=== PATIENT | male | born 1950 | race Caucasian/White ===

== ENCOUNTER 2016-11-22 14:47 | Inpatient (IN) | payer OTHER ==
[~2016-11-22] VITALS: Ht 172.7 cm; Wt 56.3 kg
--- NOTE | ~2016-11-22 | CON ---
[place], [place] REPORT OF CONSULTATION NAME: KRYSTYNA PATRICK JR UNIT #: [id number] ROOM: 420 DOCTOR: JESUS BAILEYAVRIL BIRTHDATE: [birth year] DOS: GASTROENDOSCOPIC REPORT HISTORY OF PRESENT ILLNESS: A 66-year-old patient who has presented with multiple medical problems, chronic dysphagia, difficulty with solid food ingestion; however, severely short of breath, quite restricted inspiration, practically no air exchange. On nasal O2. I have been asked for assessment of the patient regarding EGD, possibilities of the etiology of dysphagia. PAST MEDICAL HISTORY: Centrilobular emphysema of advanced lung disease, respiratory insufficiency, hypoxemia, hypertension, depression, emaciation, hyperlipidemia, diabetes mellitus, BPH. PAST SURGICAL HISTORY: Associated with previous bronchoscopy, inguinal hernia repair. SOCIAL HISTORY: Smoker up to 7 years ago and alcohol consumer until 2 decades ago. ALLERGIES: To no known medications. MEDICATION: List was reviewed. FAMILY HISTORY: Noncontributory. REVIEW OF SYSTEMS: HEENT: Denies double vision, blurred vision. RESPIRATORY: Admits to shortness of breath, on nasal O2. DIGESTIVE SYSTEM: Severe dysphagia; however, this has been a chronic condition with him. CARDIOVASCULAR: Denies chest pain. NEUROMUSCULOSKELETAL: Weight loss of 25 pounds over the past couple of years. PHYSICAL EXAMINATION: GENERAL: Extremely emaciated patient. HEENT: Head normocephalic, nontraumatic. Mouth and buccal mucosa benign. No thrush. NECK: Supple, no thyromegaly, no cervical lymphadenopathy. CHEST: Symmetric anatomy, equal expansion. Dismal air exchange, particularly in inhalation. No wheezes; however. HEART: Normal sinus rhythm, no gallop, no murmur. ABDOMEN: Soft, globular. No hepato-organomegaly. Bowel sounds present. EXTREMITIES: No cyanosis, no pedal edema. NEUROLOGIC: Alert, oriented to time, place and person. IMPRESSION: Dysphagia, ruling out esophageal moniliasis, ruling out esophageal occult pathology, i.e. carcinoma with weight loss. Otherwise, other etiologies to be ruled out; advanced COPD; end-stage lung disease. Other adjunctive diagnoses as outlined in the paragraph of past medical and surgical history. [place], [place] REPORT OF CONSULTATION NAME: KRYSTYNA PATRICK JR UNIT #: [id number] ROOM: 420 DOCTOR: JESUS BAILEY,AVRIL BIRTHDATE: [birth year] PLAN AND DISCUSSION: We are going to hold Lovenox tomorrow morning and the next day, we are going to proceed with panendoscopy. Thank you very much indeed. AVRIL LEE MD CM:CONSTR:REPORT OF CONSULTATION 1456 01/17/17 0945 interface
--- NOTE | ~2016-11-22 | PR ---
[place], [place] PROGRESS NOTE NAME: KRYSTYNA PATRICK JR UNIT #: [id number] ROOM: 404 DOCTOR: SAMANTA REMY MD BIRTHDATE: [birth year] DOS: 11/25/2016 SUBJECTIVE: The patient is feeling better, does not have any new complaints, wanted his Vicodin increased. OBJECTIVE: VITAL SIGNS: Graphic trend shows a pressure 167/65, pulse of 94, respirations 22, temperature 97.6. LUNGS: Diminished breath sounds. No wheezes, rales, or rhonchi heard. HEART: Regular. Heart rate in the low 90s. ABDOMEN: Soft, nontender. EXTREMITIES: Without any edema. ASSESSMENT AND PLAN: 1. Acute respiratory failure from underlying end-stage chronic obstructive pulmonary disease, oxygen dependent, stable and improved. [place] [facility] 2. Generalized anxiety disorder with panic attacks now on Klonopin. He has already seen Dr. Hurtado and Dr. Burgess. 3. Mild major depression, recurrent. Remeron has been started for his better sleep patterns. I suggested that he continue the same dose of Vicodin and not increase it because of increased dependency factor. SAMANTA REMY MD CM:PNTASHA [phone] SAMANTA REMY MD 11/25/162141 interface
--- NOTE | ~2016-11-22 | PR ---
[place], [place] PROGRESS NOTE NAME: KRYSTYNA PATRICK JR UNIT #: [id number] ROOM: 404 DOCTOR: REINA WORKMAN MD,NIMISHA BIRTHDATE: [birth year] DOS: 11/26/2016 PULMONARY FOLLOWUP SUBJECTIVE: He was complaining of epigastric pain. Shortness of breath and wheezing and other symptoms has been gradually subsiding. The patient denies any symptoms of nausea, vomiting. OBJECTIVE: VITAL SIGNS: For the patient which has been recorded showed normal temperature, respiratory rate of the patient recorded as 18, heart rate 102, blood pressure 152/80. The pulse oxygen saturation recorded on 3 L cannula 100% saturation. HEENT: On examination, no acute change. NECK: Supple. CARDIOVASCULAR SYSTEM: S1, S2 audible. LUNGS: Noted without any wheezing or crackles. ABDOMEN: Soft, nontender. EXTREMITIES: Show no edema. LABORATORY DATA: CBC today: WBC count 14.4, hemoglobin of 11.1, hematocrit 34.3, platelet count was normal. Creatinine was noted yesterday normal. IMPRESSION: 1. The patient with epigastric pain for this patient most likely secondary to gastroesophageal reflux or peptic ulcer disease. 2. Acute exacerbation of chronic obstructive pulmonary disease with acute bronchitis, which has been improving. PLAN OF TREATMENT: Continue current maximal medical management therapy, plan of care for the exacerbation of COPD. Assessment and management has been continued by the primary care physician for other medical management and epigastric pain. NIMISHA HUANG MD CM:PNTRANS [id number] NIMISHA WORKMAN MD 11/27/16 0710 interface
--- NOTE | ~2016-11-22 | CON ---
[place], [place] REPORT OF CONSULTATION NAME: KRYSTYNA PATRICK JR [facility] #: [id number] UNIT #: [id number] ROOM: 404 DOCTOR: REINA WORKMAN MDNIMISHA BIRTHDATE: [birth year] DOS: 11/24/2016 PULMONARY CONSULTATION EVALUATION NOTE CONSULTATION REQUESTED BY: Dr. Burrows. REASON FOR CONSULTATION: For assessment of symptoms of shortness of breath. HISTORY OF PRESENT ILLNESS: This is a 66-year-old white male who has been noted with past history of centrilobular emphysema, had chronic hypoxic respiratory failure, had been previously treated in this hospital in October 2016. The patient was treated and discharged to the nursing facility. He had bronchoscopy done during this admission as well. He presented to the hospital and was hospitalized on 11/22/2016, under the care of Dr. Burrows. The patient was seen by Dr. Burt in the Emergency Room as the patient has been noted with symptoms of increased shortness of breath with cough, intermittent sputum expectoration, significant generalized anxiety as well as wheezing. He has been admitted to the hospital. The patient was noticed with severe generalized anxiety in the past 24 hours. He was noted with symptoms of chest tightness, but denies any symptoms of chest pain. Wheezing for the patient has been noted as somewhat decreased. A rapid response was called for this patient yesterday because the patient was noted with significant distress and severe anxiety attack. Currently, the patient has been treated in Intensive Care Unit. He has been seen by the psychiatrist for this patient with some adjustment in medication has been already done. The patient appeared to be comfortable. He was still noted with symptoms of shortness of breath. REVIEW OF SYSTEMS: CONSTITUTIONAL: Fatigue and tiredness were described without symptoms of fever or chills. EYES: Denies burning, redness, or tenderness. ENT: No sore throat, hoarseness, otalgia, or postnasal drainage. CARDIOVASCULAR: The patient was noted some palpitations previously, seemed to be better at this time. Denies symptoms of anginal pain, edema, or pain of the lower extremities. GASTROINTESTINAL: Denies dysphagia, nausea, vomiting, diarrhea, abdominal pain, hematemesis, melena, dysphagia, or abnormal weight loss. GENITOURINARY: Denies dysuria, suprapubic pain, hematuria. SKIN: No lesions or rashes. CENTRAL NERVOUS SYSTEM: Denies dizziness, headache, diplopia, syncopal episodes or seizures. Remaining systems were reviewed. They were noted all negative. PAST MEDICAL HISTORY: Noted with: 1. History of centrilobular emphysema. 2. Chronic hypoxic respiratory failure with use of oxygen 3 liters nasal cannula. [place], [place] REPORT OF CONSULTATION NAME: KRYSTYNA PATRICK JR UNIT #: [id number] ROOM: [facility] DOCTOR: REINA WORKMAN MD,[facility] BIRTHDATE: [birth year] 3. Hypercholesterolemia. 4. Essential hypertension. 5. Depression. 6. Severe general anxiety disorder. 7. Vasomotor nephropathy. 8. Mixed hyperlipidemia. 9. Type 2 diabetes mellitus. 10. History of chronic lower back pain. 11. History of BPH. PAST SURGICAL HISTORY: Right inguinal hernia repair in 2011, fiberoptic bronchoscopy for the patient 09/05/2016 and in October 2016. SOCIAL HISTORY: The patient is , has 2 children. Denies history of alcohol or illicit drug use. Tobacco use noted at the age of [age] years old, 1 pack of cigarettes per day, that was discontinued in 2011. There is no history of alcohol use or illicit drug use. 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 FAMILY HISTORY: The patient's father with complication related to gangrene. Mother at the age of 53 due to complications of acute myocardial infarction. MEDICATIONS: Current medications administered were noted with use of Remeron, diltiazem, Lovenox 60 mg subq b.i.d., terazosin, Neurontin, omeprazole, metformin, Solu-Medrol 20 mg t.i.d., MiraLax, Dulera, DuoNeb, ibuprofen p.r.n. use, use of nystatin, Klonopin, [place], IV Rocephin, and other p.r.n. medications administration. DRUG ALLERGY HISTORY: The patient noted no known drug allergies. PHYSICAL EXAMINATION: GENERAL: A 66-year-old white male currently noted somewhat anxious, but comfortable. VITAL SIGNS: His height was recorded 5 feet 8 inches, weight 124 pounds, BMI 18.8. Normal temperature, yesterday noted 100.1 degrees Fahrenheit; respiratory rate 18-21; heart rate recorded at 135 yesterday, currently normal; blood pressure of patient noted 114/75 to 166/93. Pulse oxygen saturation of the patient noted 2 liters nasal cannula 95% saturation. HEENT: Head was atraumatic. Eyes nonicterus. NECK: Supple. CARDIOVASCULAR SYSTEM: S1, S2 is audible. LUNGS: The patient noted with moderate reduction in the breath sounds bilaterally without any crackles. Scattered expiratory wheezing. ABDOMEN: Soft, flat, nontender, bowel sounds present. EXTREMITIES: Show no edema, clubbing or cyanosis. CENTRAL NERVOUS SYSTEM: Cranial nerves 2-12 intact. No focal deficit. MUSCULOSKELETAL: No deformities. SKIN: No lesions or rashes. [place], [place] REPORT OF CONSULTATION NAME: KRYSTYNA PATRICK JR UNIT #: [id number] ROOM: [facility] DOCTOR: REINA WORKMAN MD,[facility] BIRTHDATE: [birth year] LABORATORY DATA: CBC done on 11/22/2016, WBC count 12.3, hemoglobin 12.6, hematocrit 39.3, platelet count was normal. BMP of the patient that was done on November 22, the patient was noted with glucose 197, BUN and creatinine were normal with CO2 of 35. Acid fast bacillus of previous bronchial washings of the patient in October 2016 were noted with no abnormal growths. Venous duplex of the lower extremity, which was done yesterday, the patient was noted with negative findings. CT of the chest was also done on the patient on 11/23/2016, does not show any evidence of pulmonary embolism. Severe emphysematous changes were noted. There was no acute pulmonary infiltration. Diverticulosis of the descending, sigmoid colon was noted without any radiologic evidence of diverticulitis in the CT scan of the abdomen and pelvis as well. Echocardiogram that was done for the patient was assessed by Dr. Whitmore was noted with left ventricular ejection fraction as 65%. Diastolic dysfunction was noted. Trace mitral valve regurgitation was also described. IMPRESSION: 1. The patient who has been currently admitted to the hospital noted with respiratory distress yesterday with sinus tachycardia secondary to acute exacerbation of chronic obstructive pulmonary disease superimposed with severe generalized anxiety attack for this patient who is currently noted stable and improving. 2. Acute tracheobronchitis. The patient was also noted bacterial origin, treated with antibiotics. 3. Past history of nicotine abuse for this patient, currently the patient abstained from any tobacco use. 4. Acute chronic hypoxic respiratory failure, remains stable. PLAN OF TREATMENT: Agree with current use of corticosteroid dose, bronchodilators, oxygen supplementation. The patient had been on Cardizem which resulted in reduction of tachycardia and also the medical management for generalized anxiety disorder, resulting reduction, improvement in tachycardia as well, which was noted sinus in origin. Optimizing nutritional status. Continuation of the previous treatment therapy, plan of management, other care. Usual care, other supportive care, therapy, plan of care and management as in progress. Usual care. The patient's pulmonary management was discussed with Dr. Burrows. Thanks for allowing me to participate in the care of this patient. [place], [place] REPORT OF CONSULTATION NAME: DARNELL MONTIELKRYSTYNA UNIT #: [id number] ROOM: [facility] DOCTOR: NIMISHA MURPHY MD BIRTHDATE: [birth year] NIMISHA HUANG MD CM:CONSTR:REPORT OF CONSULTATION 1320 11/27/16 0427 interface
--- NOTE | ~2016-11-22 | PR ---
[place], [place] PROGRESS NOTE NAME: KRYSTYNA PATRICK JR UNIT #: [id number] ROOM: 420 DOCTOR: REINA WORKMAN MD,NIMISHA BIRTHDATE: [birth year] DOS: 11/30/2016 PULMONARY PROGRESS NOTE SUBJECTIVE: The patient seen and examined on 11/30/2016. He has been comfortably sitting on the bed. He was seen in the intensive care unit. The patient has not been noted any symptoms of chest pain or any abdominal pain. Shortness breath was still noted intermittently with general anxiety disorder, increased anxiety, mild cough without any sputum expectoration. Intermittent wheezing was also noted. He had been using the BiPAP as advised mostly at night not as much the day. OBJECTIVE: VITAL SIGNS: Blood pressure 166/78-170/84, respiratory rate of 20, heart rate of 90, temperature is normal, respiratory rate 20. HEENT: Examination shows head was atraumatic. Eyes nonicterus. NECK: Supple. CARDIOVASCULAR: S1, S2 audible. LUNGS: Noted without any wheezing or crackles at the present time. Breaths are noted generally diminished bilaterally. ABDOMEN: Soft, nontender. IMPRESSION: The patient with acute on chronic hypoxic and hypercapnic respiratory failure with exacerbation of COPD. PLAN OF TREATMENT: No changes in plan of management. Continue the patient's current therapy, plan of care as in progress. Usual care. Supportive plan of management and other treatments. The patient has been ordered long-term acute care facility consultation assessment because of the patient's recurrent hospitalization and prolonged illness management and it has been denied by the insurance at this time. NIMISHA HUANG MD CM:PNTRANS [phone] NIMISHA WORKMAN MD 01/04/17 1134 interface
--- NOTE | ~2016-11-22 | PR ---
[place], [place] PROGRESS NOTE NAME: KRYSTYNA PATRICK JR UNIT #: [id number] ROOM: 404 DOCTOR: REINA WORKMAN MD,NIMISHA BIRTHDATE: [birth year] DOS: 11/25/2016 PULMONARY FOLLOWUP SUBJECTIVE: He was still noted symptoms of shortness of breath and wheezing at times. There were no symptoms of chest pain or abdominal pain. Mild cough was noted without any sputum expectoration. OBJECTIVE: VITAL SIGNS: Normal temperature, respiratory rate 22-32, heart rate 94, blood pressure 167/65 this morning. Pulse oxygen saturation 95% on 3 liters nasal canula. HEENT: No acute change. CARDIOVASCULAR: S1, S2 audible. LUNGS: Moderate general reduction in breath sounds noted in the lungs bilaterally with mild expiratory wheezing. ABDOMEN: Soft, nontender. IMPRESSION: The patient with stable respiratory status was noted at the present time with resolving acute exacerbation of chronic obstructive pulmonary disease, acute tracheobronchitis. PLAN OF TREATMENT: No changes in plan of management. Continue the patient's current therapy, plan of care, other care and management of plan of treatment, supportive care. Usual medical management. NIMISHA HUANG MD CM:JOHANN [id number] NIMISHA WORKMAN MD 11/26/16 0418 interface
--- NOTE | ~2016-11-22 | PR ---
[place], [place] PROGRESS NOTE NAME: [id number] #: [id number] ROOM: 404 DOCTOR: SAMANTA REMY MD BIRTHDATE: [birth year] DOS: SUBJECTIVE: The patient is about the same, does not have any new problems. Yesterday evening, the family wanted to have a bone scan ordered because they felt the patient has increased discomfort in all over his body. He also had complained of some difficulty swallowing and a speech study was ordered. Denies having any complaints this morning. OBJECTIVE: VITAL SIGNS: Shows a pressure of 178/89, pulse of 103, respirations 20, temperature 98.0. LUNGS: Diminished breath sounds, clear. HEART: Regular. ABDOMEN: Soft. EXTREMITIES: Without any edema. ASSESSMENT AND PLAN: 1. Acute exacerbation of COPD, end-stage, oxygen dependent patient with continued improvement in the bronchospasm. 2. Benign hypertension. Pressures quite elevated, possibly from underlying anxiety, but will readjust medicines. 3. Generalized anxiety disorder, controlled. He did have slight anxiety attack during the night. Speech study with modified barium swallow has been ordered for difficulty swallowing along with a bone scan. 4. Failure to thrive. The patient to go to a senior living rehab for rehab when bed is available and Social Service arranges. SAMANTA REMY MD CM:PNTRANS [phone] SAMANTA REMY MD 11/27/161944 interface
--- NOTE | ~2016-11-22 | CON ---
[place], [place] REPORT OF CONSULTATION NAME: KRYSTYNA PATRICK JR UNIT #: [id number] ROOM: [facility] DOCTOR: KRYSTYNA SZYMANSKI ED.D) BIRTHDATE: [birth year] DOS: HISTORY OF PRESENT ILLNESS: The patient is a 66-year-old male, referred by Dr. Masters regarding his anxiety. At the present time, this patient is in the intensive care unit at [facility]. The patient states that he is and has 2 children. He is retired, last having worked at the [employer] in [place], [place]. His family physicians are Dr. Pedraza and Stormy. PAST MEDICAL HISTORY: Pertinent for anxiety, COPD, GERD, benign prostate hypertrophy, major depression and diabetes type 2. MEDICATIONS: His medications include Remeron, Cardizem, Lovenox, Hytrin, gabapentin, omeprazole, Klonopin, prednisone, Dulera, albuterol and Rocephin. He denies any substance abuse issues and states he quit smoking approximately 7 years ago. This patient was awake, alert and oriented in all three spheres. He did seem quite anxious and quite depressed at times. I asked him if he followed with any mental health professional, he stated that he got his medications from his primary care physicians. He states he is taking new medications as prescribed by Dr. Masters. I did suggest he may want to follow up with outpatient counseling and also outpatient psychiatry, but he states he will continue to get his medications from his primary care physicians if possible. I also referred him to [facility], where he can get treatment without having to worry about his co-pays. He states he has very few financial resources and has difficult time paying any physician's fees. DIAGNOSES: 1. Generalized anxiety disorder. 2. Major depression -- recurrent. RECOMMENDATIONS: 1. The patient should continue Remeron and Klonopin as prescribed by Dr. Masters. 2. The patient should consider following outpatient for psychotherapy in my office or at [facility]. Thank you very much for this consultation. [place], [place] REPORT OF CONSULTATION NAME: KRYSTYNA PATRICK JR UNIT #: [id number] ROOM: [facility] DOCTOR: KRYSTYNA SZYMANSKI ED.D) BIRTHDATE: [birth year] KRYSTYNA SZYMANSKI ED.D CM:CONSTR:REPORT OF CONSULTATION 1338 11/25/16 1111 interface SAMANTA PEDRAZA MD and TRICIA MASTERS MD
--- NOTE | ~2016-11-22 | PR ---
[place], [place] PROGRESS NOTE NAME: KRYSTYNA PATRICK JR UNIT #: [id number] ROOM: 420 DOCTOR: REINA WORKMAN MD,NIMISHA BIRTHDATE: [birth year] DOS: 12/01/2016 PULMONARY PROGRESS NOTE SUBJECTIVE: He has been noted about the same as of yesterday. The patient still remains very anxious, complained of shortness of breath. Denies symptoms of chest pain. Cough has been noted mild without any sputum expectoration. OBJECTIVE: VITAL SIGNS: Normal temperature, respiratory rate 22-26, heart rate 88-96, blood pressure 162/70-140/70. Pulse oxygen saturation of the patient of 3.5 liters nasal cannula 94% to 99% saturation recorded. HEENT: Examination shows no new change. NECK: Supple. CARDIOVASCULAR: S1, S2 audible. LUNGS: Generalized reduction in breath sounds without wheeze or crackles. ABDOMEN: Soft, nontender. IMPRESSION: Acute on chronic hypercapnic and hypoxic respiratory failure with acute exacerbation of COPD, severe generalized anxiety disorder and muscle deconditioning. PLAN OF TREATMENT: The patient has been planned for discharge to the nursing facility for group home as the insurance authorized only group home facility and denied the LTAC transfer. The patient remains at high risk of recurrent hospitalization because of his ongoing medical problem, which requires most likely prolonged hospitalization. NIMISHA HUANG MD CM:PNTRANS [phone] NIMISHA WORKMAN MD 12/02/16 0111 interface
--- NOTE | ~2016-11-22 | PR ---
[place], [place] PROGRESS NOTE NAME: KRYSTYNA PATRICK JR UNIT #: [id number] ROOM: 420 DOCTOR: CLOTILDE MIGUEL MD BIRTHDATE: [birth year] DOS: 11/24/2016 SUBJECTIVE: The patient is feeling better than yesterday. He has been started on Klonopin and Remeron by Dr. Hurtado, the psychiatrist, but now he is complaining of some heartburns and reflux esophagitis and the patient says he has history of that in the past. OBJECTIVE: GENERAL APPEARANCE: The patient is alert and oriented x 3, in no visible distress except for generalized weakness. VITAL SIGNS: Blood pressure 114/75, heart rate of 77 beats per minute, afebrile, breathing 21 times per minute. HEENT AND NECK: Exam within normal limits. CARDIOVASCULAR SYSTEM: Heart rate is regular in rate and rhythm. S1 and S2 normally audible. LUNGS: Somewhat decreased breath sounds on lung auscultation. ABDOMEN: Soft, nontender. No obvious organomegaly. Bowel sounds are present. EXTREMITIES: Without significant cyanosis or edema. IMPRESSION: 1. The patient with gastroesophageal reflux disease and esophagitis and previous history of esophageal moniliasis, being treated with nystatin for now. The patient may require an EGD as an outpatient for further evaluation. 2. Chest pain with negative cardiac enzymes, asymptomatic, most likely related to anxiety. The patient being observed closely in the ICU. 3. Acute over chronic respiratory failure and advanced underlying chronic obstructive pulmonary disease, improving with treatment. 4. Sinus tachycardia, improved along with severe hypertension with IV diltiazem, which is being converted to oral. 5. Benign essential hypertension with elevated blood pressures are improving with treatment adjustment, Cardiology following. 6. Gastroesophageal reflux disease and esophagitis to be treated with omeprazole and nystatin swish and swallow. 7. Benign prostatic hypertrophy and urinary retention, being treated with terazosin. 8. Severe anxiety and panic attacks improved after he was put on Klonopin and Remeron by Dr. Hrutado, the psychiatrist. [place], [place] PROGRESS NOTE NAME: KRYSTYNA PATRICK JR UNIT #: [id number] ROOM: 420 DOCTOR: CLOTILDE MIGUEL MD BIRTHDATE: [birth year] CLOTILDE MIGUEL MD CM:JOHANN [phone] CLOTILDE MIGUEL MD 01/19/17 0803 interface
--- NOTE | ~2016-11-22 | PR ---
[place], [place] PROGRESS NOTE NAME: KRYSTYNA PATRICK JR UNIT #: [id number] ROOM: 404 DOCTOR: SAMANTA REMY MD BIRTHDATE: [birth year] DOS: 11/26/2016 SUBJECTIVE: The patient is doing much better. His anxiety is under control right now. OBJECTIVE: VITAL SIGNS: During the night, his pressure was 186/90, pulse of 104, respirations 22, temperature 98.3. LUNGS: Diminished breath sounds, but clear. HEART: Regular. ABDOMEN: Obese, soft, nontender. EXTREMITIES: Without any edema. ASSESSMENT AND PLAN: 1. Acute exacerbation of chronic obstructive pulmonary disease, improving. 2. Generalized anxiety disorder, a little bit more better controlled. 3. Failure to thrive. Discussed with the patient about going to a rehabilitation. He is fairly agreeable, so we will ask a PT consult and a social service consult for SNF placement. SAMANTA REMY MD CM:PNTRANS 07 [phone] SAMANTA REMY MD 11/26/162022 interface
--- NOTE | ~2016-11-22 | WRIGHTHP ---
[place], [place] PATIENT HISTORY AND PHYSICAL EXAM NAME: KRYSTYNA PATRICK JR [facility] #: [id number] UNIT #: [id number] ROOM: [facility] DOCTOR: CLOTILDE MIGUEL MD BIRTHDATE: [birth year] DOS: 11/22/2016 HISTORY OF PRESENT ILLNESS: 1. The patient is a 66-year-old gentleman with a past medical history of severe underlying end-stage COPD. 2. Chronic constipation. 3. Severe generalized anxiety disorder. 4. GERD and esophagitis. 5. History of BPH. 6. Chronic back pains. 7. Major depression, recurrent. 8. Type 2 diabetes mellitus. 9. Right inguinal hernia repair. The patient presented to the Emergency Department at [facility] and was seen by Dr. Paul for increased shortness of breath, cough, sputum and he was diagnosed as having acute exacerbation of COPD with acute over chronic respiratory failure and the patient was admitted to a monitored floor. After admission, the patient continued to be very anxious, tachycardic and even hypertensive and a psychiatric consult was obtained. Despite of treatment for severe anxiety the patient continued to have shortness of breath, tachycardia, and hypertension and later on started complaining of chest pains. A Cardiology consult was obtained and the patient was evaluated and treated by Cardiology, but the patient continued to be extremely anxious and agitated and finally a rapid response team was called on him. The patient was sent over for a CT angiogram of the chest to rule out pulmonary embolism. A CT of the abdomen was performed because some dilated bowel loops were observed during the CAT scan of the chest and an ultrasound was also ordered of the lower extremities to check for DVT. The patient is quite awake. He complains of some precordial chest pains off and on and he complains of being short of breath. The patient also complaining of severe anxiety. No fainting episode. No other GI or urinary symptoms except for one episode of vomiting for patient yesterday when he was down in Radiology. REVIEW OF SYSTEMS: LUNGS: With increasing shortness of breath. GASTROINTESTINAL: One episode of vomiting, otherwise no diarrhea or constipation. CARDIOVASCULAR SYSTEM: Complains of palpitations and chest pains. GENITOURINARY: No urinary frequency or burning. SOCIAL HISTORY: The patient lives at home. Denies smoking cigarettes, alcohol and drug abuse. The patient stopped smoking cigarettes 7 years back. FAMILY HISTORY: Noncontributory. HOME MEDICATIONS: Terazosin. The patient takes gabapentin, Zoloft, omeprazole, metformin, lorazepam and Xanax. ALLERGIES: No known drug allergies. [place], [place] PATIENT HISTORY AND PHYSICAL EXAM NAME: KRYSTYNA PATRICK JR UNIT #: [id number] ROOM: [facility] DOCTOR: CLOTILDE MIGUEL MD BIRTHDATE: [birth year] PHYSICAL EXAMINATION: GENERAL: Awake, alert and oriented, appearing very anxious, but in no distress. Generalized weakness and somewhat decreased breath sounds on lung auscultation all over. VITAL SIGNS: Blood pressure 158/106, heart rate of 135 beats per minute, breathing 22 times per minute, temp 98.8 degrees Fahrenheit. HEENT AND NECK: Extraocular movements are intact. Sclerae are anicteric. Oral mucosa is moist and clean. No obvious facial weakness. Neck is supple without any lymphadenopathy. No thyromegaly. No JVD. No carotid arterial bruits. LUNGS: Clear to auscultation. No wheezing. No rhonchi. CARDIOVASCULAR SYSTEM: Heart rate is regular in rate and rhythm. S1 and S2 normally audible. No significant murmur or any other abnormal cardiac sounds. ABDOMEN: Soft, nontender. No obvious organomegaly. Bowel sounds are present. No obvious herniation. EXTREMITIES: Without significant cyanosis or edema. Warm to touch. CENTRAL NERVOUS SYSTEM: Alert and oriented x 3. Cranial nerves II-XII are intact. Speech is normal. The patient is able to move all extremities. Normal muscle strength. Deep tendon reflexes are equal on both sides. Plantars were downgoing. IMPRESSION: 1. The patient with acute over chronic respiratory failure in exacerbation of chronic obstructive pulmonary disease with sinus tachycardia and tachypnea. The patient's CT angiogram results are still pending to rule out pulmonary embolism. The patient is also being checked for deep venous thrombosis with venous Dopplers. His cardiac enzymes so far have been negative x 2 and chest x-ray shows no acute abnormality. The patient is now being carefully and closely observed in the ICU. 2. Severe anxiety and panic attacks leading to shortness of breath, chest pains and palpitations are being treated with Xanax and Ativan and the patient also is being followed closely by Psychiatry for his severe anxiety and he takes Zoloft. 3. Sinus tachycardia. The patient on diltiazem to control his hypertension and heart rate. 4. Benign essential hypertension with elevated blood pressures being treated with IV diltiazem. The patient presently anticoagulated with Lovenox before CT angiogram results become available. The patient is being checked for pulmonary embolism. I will also consult Dr. Arcos from Pulmonary and Critical Care to follow him. The patient is on DuoNebs and Dulera and he also takes small dose of prednisone chronically. 5. Gastroesophageal reflux disease and esophagitis, symptoms are controlled with omeprazole. 6. BPH and urinary retention. The patient on terazosin and asymptomatic. TIME SPENT: 1.5 hours spent on patient management. [place], [place] PATIENT HISTORY AND PHYSICAL EXAM [facility]: [id number] UN[facility] #: [id number] ROOM: [facility] DOCTOR: CLOTILDE MIGUEL MD BIRTHDATE: [birth year] CLOTILDE MIGUEL MD CM:HISPHYS:PATIENT HISTORY AND PHYSICAL EXAMINATION [id number] CLOTILDE MIGUEL MD 11/23/161939 interface
--- NOTE | ~2016-11-22 | PR ---
[place], [place] PROGRESS NOTE NAME: KRYSTYNA PATRICK JR UNIT #: [id number] ROOM: [facility] DOCTOR: CLOTILDE MIGUEL MD BIRTHDATE: [birth year] DOS: 11/29/2016 SUBJECTIVE: The patient is still short of breath, but improved as compared to yesterday. No chest pains. Some shortness of breath, significant anxiety, generalized weakness. OBJECTIVE: Except for decreased breath sounds and generalized weakness. GENERAL APPEARANCE: The patient is alert and oriented x 3, in no visible distress. HEENT AND NECK: Exam within normal limits. CARDIOVASCULAR SYSTEM: Heart rate is regular in rate and rhythm. S1 and S2 normally audible. LUNGS: Decreased breaths sounds. ABDOMEN: Soft, nontender. No obvious organomegaly. Bowel sounds are present. EXTREMITIES: Without significant cyanosis or edema. IMPRESSION: 1. The patient with acute over chronic respiratory failure, being treated with bronchodilators, antibiotics, oxygen, this is a hypoxemic acute over chronic respiratory failure. 2. Severe generalized anxiety disorder, being treated by Psychiatry. The patient is on Remeron and Klonopin. 3. Possible esophagitis with complaints of heartburns, to be evaluated by Dr. Gonzalez, the toll relief operator. 4. Improving exacerbation of COPD with treatment. The patient remains in the ICU and has been treated with BiPAP. 5. Adult failure to thrive. The patient is too sick to be able to go to a nursing facility. He will apparently get readmitted to the hospital in a very short time after discharge so request for admission to LTAC facility at [facility] is still pending and we are waiting on it. 6. GERD and reflux esophagitis to be further worked up by toll relief operator. The patient is on nystatin swish and swallow for treatment. 7. Sinus tachycardia related to respiratory failure and severe anxiety has improved with treatment. [place], [place] PROGRESS NOTE NAME: KRYSTYNA PATRICK JR UNIT #: [id number] ROOM: [facility] DOCTOR: CLOTILDE MIGUEL MD BIRTHDATE: [birth year] CLOTILDE MIGUEL MD CM:PNTRANS [phone] CLOTILDE MIGUEL MD 11/30/16 0457 interface
--- NOTE | ~2016-11-22 | O ---
[place], [place] OPERATIVE NOTE NAME: KRYSTYNA PATRICK JR UNIT #: [id number] ROOM: 420 DOCTOR: JESUS BAILEY,AVRIL BIRTHDATE: [birth year] DOS: 12/01/2016 GASTROENDOSCOPIC REPORT The patient has presented with chief complaint of shortness of breath of extreme degree, end-stage lung disease, anemia and I have been asked for assessment of the history of anemia. The patient is suspected with esophageal moniliasis ruling out occult pathology, carcinoma and so forth to be ruled out. PROCEDURE: Today's procedure part of investigation is panendoscopy. PREMEDICATION: Versed and Diprivan. SCOPE: Olympus forward-viewing gastroscope Q10 video. REPORT: After putting the patient in the left lateral position, after application of lubricant to the scope, the scope was introduced. Thereafter, under direct visualization, I advanced through the length of the esophagus without difficulty. Esophagus, cervicothoracic distally within normal limits. Gastric pouch was entered. Evidence of gastritis was seen. Duodenal bulb, second and third part within normal limits. The patient extubated, no biopsy obtained intentionally. The patient tolerated the procedure well. IMPRESSION: Dysphagia, which could be neurogenic secondary to extreme shortness of breath and end-stage lung disease, extreme cachexia, bedridden, O2 dependency, a combination of physiologic distress. PLAN AND DISCUSSION: We are going to continue with liquid diet, i.e., Magic Cup, Ensure, ice cream, milk shake and as he tolerates, enhancing the diet. I believe he is getting to a point where his neurogenic compromise and shortness of breath leave him to be exhausted for chewing and swallowing. Therefore, he may be a proper candidate for future PEG tube. This way he is not going to have as much a struggle with his swallowing as well as chewing which is a significant effort for him. Thank you very much indeed. [place], [place] OPERATIVE NOTE NAME: KRYSTYNA PATRICK JR UNIT #: [id number] ROOM: 420 DOCTOR: AVRIL LEE MD BIRTHDATE: [birth year] AVRIL LEE MD CM:OPRECORD:OPERATIVE NOTE [id number] AVRIL LEE MD 12/01/16 2154 interface
--- NOTE | ~2016-11-22 | PR ---
[place], [place] PROGRESS NOTE NAME: KRYSTYNA PATRICK JR UNIT #: [id number] ROOM: [facility] DOCTOR: REINA WORKMAN MD,NIMISHA BIRTHDATE: [birth year] DOS: 11/29/2016 PULMONARY PROGRESS NOTE SUBJECTIVE: He was still complaining of pain in the epigastric area, shortness of breath with increased anxiety as well. The patient has been on IV Ativan that resulted in reduction of the symptoms of significant anxiety. Cough has been noted mild without any sputum expectoration. The patient has also noted some symptoms of wheezing intermittently. OBJECTIVE: VITAL SIGNS: For the patient, which has been recorded shows the temperature noted as normal. The respiratory rate 22, heart rate 92, blood pressure 160/90. HEENT: Examination shows head was atraumatic. CARDIOVASCULAR SYSTEM: S1, S2 audible. LUNGS: Noted without any wheezing or crackles at this time. Breaths are noted mildly decreased bilaterally. ABDOMEN: Soft, nontender. IMPRESSION: 1. The patient with resolving acute on chronic hypercapnic/hypoxic respiratory failure with acute exacerbation of chronic obstructive pulmonary disease. 2. Rule out esophageal stricture and other abnormalities in lower portion of the esophagus with current chest pain. Also, rule out peptic ulcer disease or esophageal ulceration. PLAN OF TREATMENT: GI consultation has been ordered for endoscopy. In the meantime, continue current plan of treatment with BiPAP oxygen, anxiolytics, corticosteroids and other treatment. The dose of steroids was increased yesterday. NIMISHA HUANG MD CM:PNTRANS [phone] NIMISHA WORKMAN MD 11/30/16 0457 interface
--- NOTE | ~2016-11-22 | PR ---
[place], [place] PROGRESS NOTE NAME: KRYSTYNA PATRICK JR UNIT #: [id number] ROOM: [facility] DOCTOR: CLOTILDE MIGUEL MD BIRTHDATE: [birth year] DOS: 11/28/2016 PHYSICAL EXAMINATION: GENERAL: The patient is awake, alert, somewhat anxious and slightly short of breath, but in no visible distress. Generalized weakness and severe anxiety. VITAL SIGNS: Blood pressure 153/93, heart rate 104 beats per minute, breathing 18 times per minute, temperature 98.1 degrees Fahrenheit. GENERAL APPEARANCE: The patient is alert and oriented x 3, in no visible distress. HEENT AND NECK: Exam within normal limits. CARDIOVASCULAR SYSTEM: Heart rate is regular in rate and rhythm. S1 and S2 normally audible. LUNGS: Clear to auscultation. ABDOMEN: Soft, nontender. No obvious organomegaly. Bowel sounds are present. EXTREMITIES: Without significant cyanosis or edema. IMPRESSION: 1. The patient with severe generalized anxiety disorder somewhat better controlled with present treatment. Dr. Hurtado is following. 2. Acute over chronic respiratory failure with hypoxemia, being treated with antibiotics, DuoNeb bronchodilators, oxygen and follow closely in the ICU. 3. Exacerbation of chronic obstructive pulmonary disease, improving with treatment with end-stage underlying lung disease and oxygen dependence. 4. Benign essential hypertension. Blood pressure is being monitored and treated. 5. Advance failure to thrive. The patient working with physical therapy. CLOTILDE MIGUEL MD CM:PNTRANS [phone] CLOTILDE MIGUEL MD 11/29/16 1149 interface
--- NOTE | ~2016-11-22 | DS ---
[place], [place] DISCHARGE SUMMARY NAME[id number] UNIT #: [id number] ROOM: 420 DOCTOR: SAMANTA REMY MD BIRTHDATE: [birth year] DOS: 12/01/2016 HOSPITAL COURSE: The patient is 66 years old, very well known to us from multiple recent admissions to the hospital. The patient was admitted initially to the hospital with acute exacerbation of COPD. He was admitted, was placed on IV steroids, antibiotics, breathing treatments. He became extremely anxious and agitated and was transferred to the ICU after rapid response was called. He had multiple workups including CT angiogram, CT of the abdomen. They have all been negative. No evidence of pneumonia or PE or any other pathology. After being in the ICU, he improved. Dr. Whitmore did see him and was placed on Cardizem for his tachycardia. Dr. Hurtado saw him for his anxiety and panic attacks. Adjustments in medicines were made. Dr. Arcos sees him for his COPD. After being transferred back to the [facility], he continued to request more and more pain medications, became increasingly somnolent and had to be placed on BiPAP and transferred back to the ICU on 11/27/2016. Again, he was in the ICU on a BiPAP and did not get intubated. Readjustments in medications were made again. Mostly, he is anxious and it gets quite worked up and makes his breathing much worse. The patient is again transferred back to the [facility]. Dr. Rouse did try to send him to long-term care facility, but the insurance has not approved them. so plan therefore is to send him to a local rehabilitation once precertification is obtained. He is going for an endoscopy this morning for complains of difficulty swallowing. He has already had a barium swallow, which was negative. He also has had a bone scan, which was negative. DISCHARGE MEDICATIONS: Will be nystatin 10 mL 4 times daily for 5 days, DuoNeb q.4, diltiazem 180 b.i.d., Klonopin 1 mg 3 times a day, Remeron 15 at bedtime, prednisone 20 mg daily without a stop date, Symbicort 160 two puffs twice a day, Spiriva 1 puff at bedtime, vitamin D 2000 units daily, terazosin 10 at bedtime, Neurontin 300 t.i.d., metformin 500 daily, omeprazole 20 b.i.d., ibuprofen 400 t.i.d., MiraLax 17 grams daily. The discontinued medications are Zoloft and Xanax, MiraLax 17 grams twice a day p.r.n. and [place]. [place], [place] DISCHARGE SUMMARY NAME: KRYSTYNA PATRICK JR UNIT #: [id number] ROOM: 420 DOCTOR: SAMANTA REMY MD BIRTHDATE: [birth year] SAMANTA REMY MD CM:DISCHKARIS 5 SAMANTA REMY MD 12/01/1648 interface
--- NOTE | ~2016-11-22 | PR ---
[place], [place] PROGRESS NOTE NAME: [id number] #: [id number] ROOM: 420 DOCTOR: SAMANTA REMY MD BIRTHDATE: [birth year] DOS: SUBJECTIVE: The patient is doing fine without any new complaints. He continues to be anxious and complains of pain. He is going for an endoscopy this morning. OBJECTIVE: VITAL SIGNS: Graphic trend shows a pressure of 140/70, pulse of 96, respirations 22, temperature 97.6. LUNGS: Diminished breath sounds. HEART: Regular. ABDOMEN: Soft, scaphoid. EXTREMITIES: Without any edema. ASSESSMENT AND PLAN: 1. The patient with complaints of difficulty swallowing for endoscopy today. 2. COPD, panacinar emphysema with chronic respiratory failure. The patient is doing much better. 3. Failure to thrive. The patient is to go to [facility] and then certification is obtained. SAMANTA REMY MD CM:PNTRANS [phone] SAMANTA REMY MD 12/01/16 2248 interface
--- NOTE | ~2016-11-22 | PR ---
[place], [place] PROGRESS NOTE NAME: KRYSTYNA PATRICK JR UNIT #: [id number] ROOM: 420 DOCTOR: CLOTILDE MIGUEL MD BIRTHDATE: [birth year] DOS: 11/30/2016 SUBJECTIVE: The patient is still quite anxious and somewhat short of breath, but in no distress. PHYSICAL EXAMINATION: VITAL SIGNS: Blood pressure 162/77, heart rate of 92 beats per minute, breathing 20 times per minute, temperature 98.3 degrees Fahrenheit. GENERAL APPEARANCE: Generalized weakness. The patient is alert and oriented x 3, in no visible distress. HEENT AND NECK: Exam within normal limits. CARDIOVASCULAR SYSTEM: Heart rate is regular in rate and rhythm. S1 and S2 normally audible. LUNGS: Clear to auscultation. Somewhat decreased breath sounds. ABDOMEN: Soft, nontender. No obvious organomegaly. Bowel sounds are present. EXTREMITIES: Without significant cyanosis or edema. IMPRESSION: 1. The patient with dysphagia and heartburns going for panendoscopy by Dr. Gonzalez. 2. Jrqqg-[id number] respiratory failure, somewhat improved with treatment combined by severe anxiety. The patient on bronchodilators, antibiotic, and oxygen, and he has been hypoxemic. 3. Severe generalized anxiety disorder, being followed by Psychiatry and patient is on Klonopin and Remeron. 4. Suspected esophagitis and reflux. The patient going for EGD evaluation by Dr. Gonzalez. 5. Exacerbation of chronic obstructive pulmonary disease, continues to improve with treatment. 6. Advanced adult failure to thrive. Waiting for transfer to group home facility as he was refused admission and transfer to LTAC facility. 7. Sinus tachycardia related to respiratory failure and anxiety has improved. [place], [place] PROGRESS NOTE NAME: KRYSTYNA PATRICK JR UNIT #: [id number] ROOM: 420 DOCTOR: CLOTILDE MIGUEL MD BIRTHDATE: [birth year] CLOTILDE MIGUEL MD CM:PNTRANS [phone] CLOTILDE MIGUEL MD 01/19/17 0802 interface
--- NOTE | ~2016-11-22 | PR ---
[place], [place] PROGRESS NOTE NAME: KRYSTYNA PATRICK JR UNIT #: [id number] ROOM: [facility] DOCTOR: REINA WORKMAN MD,NIMISHA BIRTHDATE: [birth year] DOS: 11/27/2016 PULMONARY PROGRESS NOTE SUBJECTIVE: The patient was seen and examined on 11/27/2016. He has been still complaining of pain in the epigastric area. Shortness of breath for the patient has been noted stable. There were no symptoms of coughing. The patient denies any symptoms of hemoptysis. OBJECTIVE: VITAL SIGNS: For the patient, which has been recorded shows the blood pressure for the patient noted as 150/82, respiratory rate of 18, heart rate 88, temperature was normal. HEENT: Examination shows head was atraumatic. Eyes nonicterus. NECK: Supple. CARDIOVASCULAR SYSTEM: S1, S2 audible. LUNGS: Noted without any wheezing or crackles at the present time. Breaths are noted mildly decreased bilaterally. ABDOMEN: Soft and nontender. LABORATORY DATA: There were no new labs were done today. IMPRESSION: 1. The patient with epigastric pain for the patient, possibly peptic ulcer disease or other etiologies. 2. Resolving acute on chronic hypoxic respiratory failure. 3. Improving acute exacerbation of chronic obstructive pulmonary disease as well. PLAN OF TREATMENT: No changes in the plan of management at this time. The patient will be continued on current treatment as in progress. Usual care. Supportive therapy, plan of management and other care and treatments. NIMISHA HUANG MD CM:PNTRANS [phone] NIMISHA WORKMAN MD 11/27/16 2255 interface
--- NOTE | ~2016-11-22 | PR ---
[place], [place] PROGRESS NOTE NAME: KRYSTYNA PATRICK JR UNIT #: [id number] ROOM: [facility] DOCTOR: REINA WORKMAN MD,NIMISHA BIRTHDATE: [birth year] DOS: 11/28/2016 PULMONARY PROGRESS NOTE SUBJECTIVE: He had developed significant respiratory distress last evening. The patient was ordered the BiPAP. He was transferred to the Intensive Care Unit as well. The patient has been given some anxiolytics. He has been noted with reduction in symptoms of shortness of breath. He was still complaining of pain, which is described in the upper abdomen as well as in the esophageal area. The patient denies any symptoms of abdominal pain. The modified barium swallow was completed yesterday on this patient. OBJECTIVE: VITAL SIGNS: Showed normal temperature, respiratory rate 17, heart rate 90, blood pressure 156/89. Intake for this patient is 630, output 1300 mL. HEENT: Examination shows head was atraumatic. Eyes nonicterus. NECK: Supple. CARDIOVASCULAR SYSTEM: S1, S2 is audible. LUNGS: For this patient was noted without any wheezing or crackles. ABDOMEN: Soft with some tenderness in the epigastric area. LABORATORY DATA: Arterial blood gas of the patient that was done for this patient shows pH of 7.21, pCO2 87, pO2 120 yesterday at the time of the respiratory distress. Bone survey was completed for this patient yesterday as well and was described with the findings of no definitive lytic or blastic lesions. Osteopenia was noted with chronic compression deformities of multiple thoracic and vertebral bodies. IMPRESSION: 1. The patient who has been noted with ongoing acute on chronic hypercapnic and hypoxic respiratory failure noted worsening of the respiratory status in the last 12 hours. 2. Esophageal stasis with patient ____ modified barium swallow. The patient required further assessment of the upper GI tract of the patient with the endoscopy and GI consultation should be definitively obtained. PLAN OF TREATMENT: Solu-Medrol dose has been changed to 40 mg 8 hours for the patient until acute exacerbation subsides. Continue antibiotics, other treatment, plan of management, nutrition support, other therapy, plan of care and usual care. Supportive care, other medical management. Usual treatment. [place], [place] PROGRESS NOTE NAME: KRYSTYNA PATRICK JR UNIT #: [id number] ROOM: [facility] DOCTOR: NIMISHA MURPHY MD BIRTHDATE: [birth year] NIMISHA HUANG MD CM:JOHANN [phone] NIMISHA WORKMAN MD 11/29/16 1207 interface
--- NOTE | ~2016-11-22 | PROC NOTE ---
[place], [place] PROCEDURE NOTE NAME: KRYTSYNA PATRICK JR UNIT #: [id number] ROOM: [facility] DOCTOR: Marilyn Cunningham BIRTHDATE: [birth year] DOS: 11/27/2016 MODIFIED BARIUM SWALLOW STUDY PHYSICIAN: Dr. Burrows. RADIOLOGIST: Dr. Gaytan. BACKGROUND MEDICAL HISTORY: The patient was admitted with exacerbation of COPD, and has a current diagnosis of COPD, gastroesophageal reflux disease and esophagitis, diabetes, anxiety disorder and he is currently on a regular diet with thin liquids at this time. He reported difficulty with swallowing and indicated to the upper esophageal area as well as along the esophagus. The patient stated that food will get stuck and that he has to swallow multiple times or take drinks multiple times in order to clear the food and that occasionally he will vomit or spit the food back up. The patient stated that he has pain when food gets stuck and that he can feel when it occurs. The patient was able to give history, information and described symptoms. His cognitive responsiveness level was within the functional limits. His respiratory status was congested and the patient was on oxygen. He also demonstrated a weak cough and shortness of breath throughout the assessment today. He currently has upper and lower dentures that he stated they fit well at this time. METHODS AND MATERIALS: The patient was given nectar thick liquid by spoon and thin liquid by cup and by straw. He was also given pureed consistency, 1 soft consistency as well as a regular consistency bolus, all covered in liquid barosperse for viewing under fluoroscopy. The patient was seated in a wheelchair and viewed in the lateral plane. ORAL PHASE: This phase of the swallow was essentially unremarkable. The patient demonstrated adequate labial seal and adequate mastication as well as adequate oral transit times and bolus propulsion. Bolus formation was adequate and no piecemeal deglutition was noted at this time. Tongue to palate contact and tongue to posterior pharyngeal wall contact were normal. No tongue pumping was noted and calvert function was normal as no nasal regurgitation occurred. PHARYNGEAL PHASE: This phase of swallow was also essentially unremarkable. The patient demonstrated no swallow triggered delay. It was abnormal. He demonstrated minimal premature loss of bolus; however, he was able to trigger a swallow within a timely manner. Vallecular stasis was noted after the swallow with solids; however, he was able to clear this with a second swallow and was aware of the residue. No penetration or aspiration occurred during the assessment with any consistencies presented. Epiglottic function was normal at this time. ESOPHAGEAL PHASE: This phase of the swallow was not formally assessed at this time; however, it is noted that the patient demonstrated stasis of the bolus in the upper esophageal sphincter opening with regular solids. He was aware of this stasis and was able to elicit a second swallow with a small bolus in order to clear the material and the bolus was slow moving through the esophagus and [place], [place] PROCEDURE NOTE NAME: KRYSTYNA PATRICK JR UNIT #: [id number] ROOM: [facility] DOCTOR: Marilyn Cunningham BIRTHDATE: [birth year] the upper region. The patient stated that he was aware of the material and he also stated that he was aware when it was able to be cleared, so he does have good sensitivity in that area. IMPRESSION AND RECOMMENDATIONS: The patient presents with essentially normal swallow function at this time in relation to this discipline and with triggering a swallow as well as oral phase of the swallow at this time. The patient's deficits are mostly within the esophageal area and when the bolus reaches the point passed the upper esophageal sphincter or within that area and it is recommended that the patient follow up with his doctor for further recommendations of testing and strategies or interventions. The patient results were reviewed with the patient and he verbalized understanding and agreement. If you have any questions or comments regarding this assessment, please contact the speech pathology department at [phone]. No further speech therapy is recommended at this time. Thank you for this referral. Marilyn Cunningham CM:PROCNOTE:PROCEDURE NOTE [id number] Marilyn Cunningham
--- NOTE | ~2016-11-22 | CON ---
[place], [place] REPORT OF CONSULTATION NAME: ABRAHAM PATRICK JR UNIT #: [id number] ROOM: 420 DOCTOR: TRICIA MASTERS MD BIRTHDATE: [birth year] DOS: 11/24/2016 PSYCHIATRIC CONSULT CHIEF COMPLAINT: "Oh my anxiety is something bad and I am so depressed." HISTORY OF PRESENT ILLNESS: This is a 66-year-old white male who was admitted due to significant shortness of breath and chest pain. He was admitted to ICU for further evaluation. During the course of his stay in the ICU, the patient has voiced that he continues to have significant problems with depression and anxiety. He traces a lot of this back to when he lost his son several years ago. Since that time, he reports he has never been the same. He endorses poor sleep with difficulty falling asleep, sleep continuity disturbance, management engineer awakening, anergia, anhedonia, hopeless, helpless feelings, crying spells, and inability to cope. He also has had a significant decrease in appetite with weight loss. He has been prescribed alternately Ativan and Xanax and neither of them has worked consistently to stop his anxiety attacks. He reports that his anxiety is almost constant throughout the day with periods when it will peak excessively to the point where he is outwardly shaking and unable to function. He is willing to allow me to adjust medications as well as willing to allow me to engage Dr. Abraham Burgess, psychologist on to the case. PAST MEDICAL HISTORY: Remarkable for significant end-stage COPD, panic disorder, major depression, BPH, GERD, chronic back pain, diabetes and inguinal hernia. MENTAL STATUS: The patient is alert and oriented. Mood is depressed. Affect is somewhat anxious and fretful. There is no thomas or hypomania. There are no overt auditory or visual hallucinations. No delusions, no paranoia are present. Short, intermediate, and long-term memory are intact. DIAGNOSES: Major depression, recurrent and panic disorder. PLAN: I will discontinue Xanax as well as his Zoloft, start him on Remeron 15 mg at bedtime as well as Klonopin 1 mg t.i.d. I will consult Abraham Burgess, psychologist, to engage him in individual counseling and some grief work. Discharge then and follow up in the office when stable. TRICIA MASTERS MD CM:CONSTR:REPORT OF CONSULTATION [id number] 01/04/17 [id number] interface
[~2016-11-22 14:47] MED LIST: 'XANAX0.25 MG PO; ACETAMINOPHEN-H1 TA2 PO; ACULAR 3ML 3 ML5 ML OS; ALBUTEROL0.09 MG/A2 IH; ALBUTEROL0.09 MG/A2 INH; ALPRAZOLAM0.5 M3 PO; AMOXICILLIN500 M1 PO; ATENOLOL25 MG PO; ATIVAN0.5 MG PO; ATIVAN1 MG PO; AUGMENTIN 875-875 MG PO; BUSPIRONE HCL5 MG PO; BUSPIRONE HYDRO10 MG PO; CIPROFLOXACIN500 MG PO; CLEOCIN HCL300 MG PO; CLONAZEPAM0.5 MG PO; COMPAZINE10 MG PO; CORDROL20 MG PO; COZAAR100 MG PO; COZAAR25 M1 PO; Carafate1 GM/10 ML PO; D-31000 IU PO; DOXYCYCLINE100 M3 PO; DUONEB 3 MG/3 ML3 M1 INH; DUONEB 3ML 3 MG/3 ML INH; EC NAPROSYN500 MG PO; ESIDRIX25 MG PO; FLEXERIL10 MG PO; FLUCONAZOLE100 MG PO; GABAPENTIN800 MG PO; HYDR25T PO; HYDROCODONE BIT1 T11 PO; HYDROCODONE/ACE1 T14 PO; HYDROCODONE/ACE1 TA2 PO; IBUPROFEN400 MG PO; KLONOPIN1 MG PO; KLOR-CON M2020 MEQ PO; LAXATIVE; LEVAQUIN500 M2 PO; LEVAQUIN750 M1 PO; LEVAQUIN750 MG PO; LEVOFLOXACIN500 MG PO; LORAZEPAM0.5 MG PO; MASON NATURAL1000 IU PO; MEDROL DOSEPAK4 MG PO; METFORMIN500 MG PO; MIRALAX POWDER17 G1 PO; MIRALAX17 GM PO; MIRALAX17 GM/DOSE PO; MOTRIN600 MG PO; MUCINEX DM 30 M1 TER PO; MUCINEX600 MG PO; NEURONTIN300 MG PO; OCUFLOX 0.3% 5 M5 ML OPH; OMEPRAZOLE MAGN20 MG PO; OMEPRAZOLE20 MG PO; OMEPRAZOLE40 MG PO; PRED FORTE 5 ML5 ML OS; PREDNICOT10 MG PO; PREDNICOT20 MG PO; PREDNISONE10 MG PO; PREDNISONE20 M1 PO; PREDNISONE20 MG PO; PRILOSEC20 M1 PO; PRILOSEC20 MG PO; PROVENTIL INHALER; REMERON; SERTRALINE HYD100 MG PO; SERTRALINE HYDR50 MG PO; SPIRIVA -- 3018 MCG INH; SPIRIVA18 MCG IH; SYMBICORT INHALER; SYMBICORT1 AE1 IH; TEMAZEPAM15 M1 PO; TERAZOSIN HCL10 M1 PO; TERAZOSIN HCL5 M1 PO; TERAZOSIN HCL5 MG PO; TERAZOSIN5 MG PO; TRAMADOL HCL50 MG PO; VENTOLIN 02.5 MG/3 M INH; VENTOLIN H0.09 MG/AC INH; VIBRA-TAB100 M1 PO; VIBRAMYCIN100 MG PO; VICODIN 5/500 505 MG PO; VITAMIN D400 IU PO; XANAX0.5 MG PO; XOPENEX1.25 MG/3 NEB; ZESTRIL,PRINIVI20 MG PO; ZITHROMAX Z PA250 MG PO; ZOCOR20 MG PO; ZOCOR40 MG PO
[2016-11-22 14:54] VITALS: BP 151/90
[2016-11-22 15:33] LABS: BASO % 0.2 % (0.0-1.0); EOS % 0.2 % (1.0-4.0); HEMATOCRIT 39.3 % (42.0-52.0); HEMOGLOBIN 12.6 g/dl (14.0-18.0); IG # 0.1 10*3/uL (0.0-0.1); LYMPH # 0.7 10*3/uL (1.3-4.4); MEAN CELL VOLUME 91.4 fl (80.0-94.0); MEAN CORPUSCULAR HGB 29.3 pg (27.0-31.0); MEAN CORPUSCULAR HGB CONC 32.1 g/dl (33.0-37.0); MEAN PLATELET VOLUME 9.6 fl (9.6-12.3); MONO # 0.6 10*3/uL (0.1-1.0); MONO % 4.9 % (3.0-9.0); NEUT # 10.9 10*3/uL (2.3-7.9); NEUT % 88.2 % (47.0-73.0); PLATELET COUNT AUTOMATED 257 10*3/uL (130-400); RED CELL DISTRI WIDTH 13.2 % (0-14.5); WHITE BLOOD COUNT 12.3 10*3/uL (4.8-10.8)
[2016-11-22 15:49] LABS: BUN 13 mg/dl (7-24); CARBON DIOXIDE 35 mmol/L (21-32); CHLORIDE 97 mmol/L (98-107); EST GLOM FILT AFRICAN AMERICAN > 60 ml/min; GLUCOSE 197 mg/dL (65-99); POTASSIUM 4.7 mmol/L (3.5-5.1); SODIUM 139 mmol/L (136-145)
[2016-11-22 17:22] VITALS: BP 150/100
[2016-11-22 18:10] VITALS: BP 164/100
[2016-11-22] MEDS ORDERED: PREDNISONE5 MG PO (18:41)
[2016-11-22 20:00] VITALS: BP 144/98
[2016-11-22] MEDS ORDERED: XANAX1 MG PO (21:43)
[2016-11-23] VITALS (8 sets, daily range): BP systolic 145–197; BP diastolic 91–108
[2016-11-23 05:23] LABS: URINE AMPHETAMINES < 1000 (1000ng/ml); URINE BARBITURATES < 200 (200ng/ml); URINE COCAINE < 300 (300ng/ml)
[2016-11-23 13:30] LABS: CKMB 4.6 ng/ml (0.5-3.6)
[2016-11-24] VITALS (8 sets, daily range): BP systolic 102–159; BP diastolic 67–88
[2016-11-25 04:00] VITALS: BP 167/65
[2016-11-25 05:54] LABS: HEMATOCRIT 34.3 % (42.0-52.0); HEMOGLOBIN 11.1 g/dl (14.0-18.0); MEAN CELL VOLUME 90.3 fl (80.0-94.0); MEAN CORPUSCULAR HGB 29.2 pg (27.0-31.0); MEAN CORPUSCULAR HGB CONC 32.4 g/dl (33.0-37.0); MEAN PLATELET VOLUME 10.4 fl (9.6-12.3); PLATELET COUNT AUTOMATED 222 10*3/uL (130-400); RED CELL DISTRI WIDTH 13.2 % (0-14.5); WHITE BLOOD COUNT 14.4 10*3/uL (4.8-10.8)
[2016-11-25 06:21] LABS: EST GLOM FILT AFRICAN AMERICAN > 60 ml/min
[2016-11-25 07:20] LABS: LYMPHOCYTE # 0.3 10*3/uL (1.3-4.4); MONOCYTE # 0.9 10*3/uL (0.1-1.0); NEUTROPHIL # 13.2 10*3/uL (2.3-7.9); NEUTROPHILS 92 % (47-73); PLATELET SUFFICIENCY NORMAL (NORMAL); TOTAL CELLS COUNTED 100 #CELLS
[2016-11-25 08:00] VITALS: BP 150/86
[2016-11-25 12:00] VITALS: BP 152/84
[2016-11-25 16:00] VITALS: BP 160/86
[2016-11-25 20:00] VITALS: BP 180/83
[2016-11-26] VITALS: BP 186/90
[2016-11-26] MEDS ORDERED: LANTUS100 U/ML SQ (07:21)
[2016-11-26 08:00] VITALS: BP 186/90
[2016-11-26 09:00] VITALS: BP 152/80
[2016-11-26 12:00] VITALS: BP 160/96
[2016-11-26 16:00] VITALS: BP 140/90
[2016-11-26 20:00] VITALS: BP 183/83
[2016-11-27] VITALS (7 sets, daily range): BP systolic 150–201; BP diastolic 80–100
[2016-11-27 19:28] LABS: ABG CO2 CONTENT 36.7 mmol/L (23-27); ABG HCO3 34.1 mmol/l (22-26); ABG TEMPERATURE 98.5 F (98.0-99.0); ARTERIAL BLOOD GAS PH 7.216 (7.35-7.45)
[2016-11-28] VITALS: BP 160/80
[2016-11-28 04:00] VITALS: BP 166/78
[2016-11-28 08:00] VITALS: BP 156/89
[2016-11-28 12:00] VITALS: BP 165/88
[2016-11-28 16:00] VITALS: BP 153/93
[2016-11-28 19:30] VITALS: BP 171/99
[2016-11-29] VITALS: BP 163/93
[2016-11-29 04:00] VITALS: BP 168/95
[2016-11-29 06:03] LABS: BASO % 0.1 % (0.0-1.0); HEMATOCRIT 37.8 % (42.0-52.0); HEMOGLOBIN 11.9 g/dl (14.0-18.0); LYMPH # 0.4 10*3/uL (1.3-4.4); LYMPH % 4.2 % (27.0-41.0); MEAN CORPUSCULAR HGB CONC 31.5 g/dl (33.0-37.0); MEAN PLATELET VOLUME 10.8 fl (9.6-12.3); MONO # 0.5 10*3/uL (0.1-1.0); MONO % 5.6 % (3.0-9.0); NEUT # 7.4 10*3/uL (2.3-7.9); NEUT % 89.7 % (47.0-73.0); PLATELET COUNT AUTOMATED 167 10*3/uL (130-400); RED BLOOD COUNT 4.11 10*6/uL (4.50-5.90); RED CELL DISTRI WIDTH 12.8 % (0-14.5); WHITE BLOOD COUNT 8.3 10*3/uL (4.8-10.8)
[2016-11-29 06:20] LABS: EST GLOM FILT AFRICAN AMERICAN > 60 ml/min
[2016-11-29 08:00] VITALS: BP 160/90
[2016-11-29 12:00] VITALS: BP 139/87
[2016-11-29 16:00] VITALS: BP 128/74
[2016-11-29 20:00] VITALS: BP 148/75
[2016-11-30] VITALS: BP 176/88
[2016-11-30 03:50] VITALS: BP 166/78
[2016-11-30 08:00] VITALS: BP 170/84
[2016-11-30 12:00] VITALS: BP 167/81
[2016-11-30 16:00] VITALS: BP 162/77
[2016-11-30 20:00] VITALS: BP 145/73
[2016-12-01] VITALS (8 sets, daily range): BP systolic 140–169; BP diastolic 65–90
[2016-12-01] MEDS ORDERED: NYSTATIN100000 U/M PO (09:09)
[2016-12-01] MEDS ORDERED: PREDNISONE5 MG PO (09:09)
[2016-12-01] MEDS ORDERED: MIRTAZAPINE15 M2 PO (09:09)
[2016-12-01] MEDS ORDERED: CLONAZEPAM1 MG PO (09:09)
[2016-12-01] MEDS ORDERED: DUONEB 3 MG/3 ML3 M1 NEB (09:09)
[2016-12-01] MEDS ORDERED: DILTIAZEM HYDR180 M2 PO (09:09)
== END 2016-12-01 20:41 | DRG 189 ==
LOC: ED 14:47 → EDHOLD 16:48 → ICCU 16:48 → 4E 17:06 → ICCU 11-23 13:24 → 4E 11-25 14:36 → ICCU 11-27 20:03 → 4E 12-01 01:13
PROVIDERS: Emergency Medicine; Internal Medicine; Internal Medicine Critical Care Medicine
PROC: 5A09557 Assistance with Respiratory Ventilation, Greater than 96 Consecutive Hours, Continuous Positive Airway Pressure (ICD-10-PCS; principal; 2016-11-22)
PROC: BD11YZZ Fluoroscopy of Esophagus using Other Contrast (ICD-10-PCS; 2016-11-27)
PROC: 0DJ08ZZ Inspection of Upper Intestinal Tract, Via Natural or Artificial Opening Endoscopic (ICD-10-PCS; 2016-12-01)
DX: J96.21 Acute and chronic respiratory failure with hypoxia (principal); J44.0 Chronic obstructive pulmonary disease with (acute) lower respiratory infection; J44.1 Chronic obstructive pulmonary disease with (acute) exacerbation; F33.0 Major depressive disorder, recurrent, mild; F41.1 Generalized anxiety disorder; J20.9 Acute bronchitis, unspecified; I10 Essential (primary) hypertension; R62.7 Adult failure to thrive; R00.0 Tachycardia, unspecified; N40.0 Benign prostatic hyperplasia without lower urinary tract symptoms; K21.0 Gastro-esophageal reflux disease with esophagitis; J96.22 Acute and chronic respiratory failure with hypercapnia; K59.09 Other constipation; E11.9 Type 2 diabetes mellitus without complications; F41.0 Panic disorder [episodic paroxysmal anxiety]

== ENCOUNTER 2016-12-01 22:01 | Emergency (ER) | payer OTHER ==
[~2016-12-01] VITALS: Ht 167.6 cm; Wt 61.2 kg
[~2016-12-01 22:01] MED LIST changes: +CLONAZEPAM1 MG PO; +DILTIAZEM HYDR180 M2 PO; +DUONEB 3 MG/3 ML3 M1 NEB; +LANTUS100 U/ML SQ; +MIRTAZAPINE15 M2 PO; +NYSTATIN100000 U/M PO; +PREDNISONE5 MG PO; +XANAX1 MG PO
== END 2016-12-02 02:57 | disposition expired ==
LOC: ED 22:01
DX: I46.9 Cardiac arrest, cause unspecified (principal); Z79.899 Other long term (current) drug therapy